=== PATIENT | female | born 1995 | race Two or more races ===

== ENCOUNTER 2018-02-14 22:22 | Emergency (ER) | payer MEDICAID ==
[~2018-02-14] VITALS: Ht 157.5 cm; Wt 38.6 kg
[~2018-02-14 22:22] MED LIST: DEXAMETHASONE 0.1% EACHEYE; DIAZ10TA PO; HYDR2TAB4 PO; INFL100V IV; METH25VI11 IJ; NORE-82 PO; ONDA4TAB5 PO; OXYC-132 PO
[2018-02-14] MEDS ORDERED: PROCHLORPERAZINE EDISYLATE 10 MG/2 ML VIAL IV ONE (23:30)
[2018-02-14] MEDS ORDERED: HYDROMORPHONE 1 MG/1 ML DISP.SYRIN IV ONE (23:30)
[2018-02-14] MEDS ORDERED: IV NORMAL SALINE 1000 ML BAG IV ONE (23:30)
[2018-02-14] MEDS ORDERED: PROCHLORPERAZINE EDISYLATE 10 MG/2 ML VIAL ONE (23:40)
[2018-02-14] MEDS ORDERED: HYDROMORPHONE 2 MG/1 ML DISP.SYRIN ONE (23:40)
[2018-02-15] LABS: CREATININE 0.8 mg/dL (0.6-1.3); POTASSIUM 3.6 mmol/L (3.5-5.1)
[2018-02-15 00:07] LABS: BASOPHILS % (AUTO) 0.6 % (0.0-2.0); EOSINOPHILS # (AUTO) 0.3 K/uL (0.0-0.7); EOSINOPHILS % (AUTO) 3.5 % (0.0-7.0); HEMATOCRIT 41.6 % (31.2-41.9); HEMOGLOBIN 14.3 g/dL (10.9-14.3); LYMPHOCYTES # (AUTO) 2.8 K/uL (20.0-40.0); MEAN CORPUSCULAR HEMOGLOBIN 31.1 uug (24.7-32.8); MEAN CORPUSCULAR HGB CONC 34 g/dL (32.3-35.6); MEAN CORPUSCULAR VOLUME 90.7 fL (75.5-95.3); MONOCYTES # (AUTO) 0.6 K/uL (2.0-10.0); MONOCYTES % (AUTO) 7.8 % (0.0-11.0); NEUTROPHILS % (AUTO) 52.1 % (38.5-71.5); PLATELET COUNT (AUTO) 264 K/uL (179-408); RED BLOOD CELL COUNT(AUTO) 4.59 MIL/uL (3.63-4.92); WHITE BLOOD COUNT (AUTO) 7.8 K/uL (3.8-11.8)
--- NOTE | 2018-02-15 00:34 | NUR ---
Patient discharged to home in stable conditon. Written and verbal after care instructions given. Patient verbalizes understanding of instructions.
== END 2018-02-15 00:35 | disposition home or self-care (01) ==
LOC: ER 22:24
DX: R51 Headache (principal); Z88.0 Allergy status to penicillin; Z88.5 Allergy status to narcotic agent; Z88.8 Allergy status to other drugs, medicaments and biological substances; Z91.041 Radiographic dye allergy status; Z91.012 Allergy to eggs
CPT/HCPCS: 36415; 80048; 84702; 85025; 96374; 96375; 99284; J0780; J1170; A4663; J7030

== ENCOUNTER 2018-06-12 20:34 | Emergency (ER) | payer MEDICAID ==
[~2018-06-12] VITALS: Ht 157.5 cm; Wt 40.8 kg
[2018-06-12] MEDS ORDERED: IV NORMAL SALINE 1000 ML BAG IV ONE ×2 (21:15→22:15)
[2018-06-12] MEDS ORDERED: ONDANSETRON IV *ER 4 MG/2 ML VIAL IV ONE (21:15)
[2018-06-12] MEDS ORDERED: HYDROMORPHONE HCL 2 MG TABLET PO ONE (21:30)
--- NOTE | 2018-06-12 21:30 | NUR ---
Pt. ambulated into ED w/ mom w/ c/o 12/15 [id number], nausea and feelings of malaise w/o appetite, CP/F/C/D, denies visual difficulties and dizziness, pt. has a hx of autoimmune disorder,
[2018-06-12] MEDS ORDERED: HYDROMORPHONE HCL 2 MG TABLET ONE (21:38)
[2018-06-12] MEDS ORDERED: ONDANSETRON 4 MG/2 ML VIAL ONE (21:38)
--- NOTE | 2018-06-12 22:59 | NUR ---
Pt. resting in bed, IV patent - flushes w/o complication, no s/s infiltration/phlebitis
--- NOTE | 2018-06-12 23:05 | NUR ---
Patient discharged to home in stable conditon. Written and verbal after care instructions given. Patient verbalizes understanding of instructions. Pt. d/c w/ prescription per MD order, d/c papers signed, all belongings w/ pt., ID/IV removed, ambulated off unit w/ steady gait accompanied by mom, instructed not to drive, NAD
== END 2018-06-12 23:07 | disposition home or self-care (01) ==
LOC: ER 20:36
DX: G43.909 Migraine, unspecified, not intractable, without status migrainosus (principal); G89.29 Other chronic pain; F32.9 Major depressive disorder, single episode, unspecified; Z88.0 Allergy status to penicillin; Z88.1 Allergy status to other antibiotic agents; Z88.8 Allergy status to other drugs, medicaments and biological substances; Z91.012 Allergy to eggs; Z79.891 Long term (current) use of opiate analgesic
CPT/HCPCS: 96374; 99283; J2405; A4663; J7030